=== PATIENT | female | born 1985 | race Caucasian/White ===

== ENCOUNTER 2017-07-19 14:54 | Emergency (ER) | payer MEDICAID ==
[2017-07-19] MEDS: METOCLOPRAMIDE 10 MG INJ IV (17:26)
[2017-07-19] MEDS: DIPHENHYDRAMINE 50 MG INJ IV (17:26)
[2017-07-19] MEDS: SOD CHLORIDE 0.9% 1,000 ML IV (17:27)
[2017-07-19] MEDS: KETOROLAC 30 MG INJ IV (17:27)
[2017-07-19 17:29] LABS: URINE PH (Dip) POC 7.5 (5.0-8.5)
[2017-07-19 17:29] LABS: URINE BLOOD (Dip) POC 2+ (NEGATIVE); URINE GLUCOSE (Dip) POC Negative (NEGATIVE); URINE KETONES (Dip) POC Negative (NEGATIVE); URINE LEUKOCYTE EST (Dip) POC Negative (NEGATIVE); URINE NITRITE (Dip) POC Negative (NEGATIVE); URINE TOTAL PROTEIN POC Negative (NEGATIVE)
== END 2017-07-19 19:33 | disposition home or self-care (01) ==
LOC: FTE 14:54
DX: R51 Headache (principal)
CPT/HCPCS: 70450; 81003; 96374; 96375; 99285-25

== ENCOUNTER 2018-02-13 15:18 | Emergency (ER) | payer OTHER, MEDICAID ==
[2018-02-13] MEDS: KETOROLAC 30 MG INJ IV (16:23)
[2018-02-13] MEDS: CLINDAMYCIN 300 MG/D5W (PMX) 50 ML IVPB ×2 (16:24→16:40)
[2018-02-13] MEDS ORDERED: CEFTRIAXONE 1 GM/50 ML (PMX) 50 ML IVPB (16:30)
[2018-02-13] MEDS: ACETAMINOPHEN 500 MG TAB PO (16:37)
== END 2018-02-13 17:46 | disposition home or self-care (01) ==
LOC: FTE 15:18
DX: K08.89 Other specified disorders of teeth and supporting structures (principal); I10 Essential (primary) hypertension
CPT/HCPCS: 36415; 81025; 84702; 96365; 99284-25